=== PATIENT | female | born 1955 | race Caucasian/White ===

== ENCOUNTER 2025-01-21 17:59 | Emergency (ER) | payer MEDICARE, OTHER ==
[2025-01-21 18:18] VITALS: BP 206/96; RESP 20; TEMP 99.1; O2SAT 97
[2025-01-21] MEDS ORDERED: ACETAMINOPHEN 325 MG TAB PO ONE (18:30)
[2025-01-21] MEDS ORDERED: traMADol HCL 50 MG TAB PO ONE (18:30)
--- NOTE | 2025-01-21 18:32 | ED.PDOC ---
History of Present Illness HPI Comments 69-year-old female came to ER for high blood pressure. Patient does have history of hypertension thyroid disease. Has good compliance to her medications. She fell off her bed 2 days ago, and she suffered right ribcage fractures. Since then patient has been constant pain, despite taking ibuprofen 600mg. Patient had there blood pressure taken earlier, and noted to be elevated the 214/129 mm Hg. She denies any headaches, dizziness, or blurring of vision. Chief Complaint: High Blood Pressure Time Seen by MD: 18:29 Primary Care Provider: ANNA Reviewed Notes: Nurses Notes Allergies: Coded Allergies: Aspirin (Verified Allergy, Severe, 10/14/13) Information Source: Patient, Relative (Sibling) Mode of Arrival: Ambulatory Severity: Moderate Timing: Days Duration: Since onset Review of Systems REVIEW OF SYSTEMS: No fever, no chills, or fatigue HEENT: No sore throat, no earache, no congestion, no neck pain. Cardiac: (+) chest wall pain. No palpitations. Lungs: No shortness of breath, no cough. GI: No nausea, no vomiting, no diarrhea, no constipation, no abdominal pain : No dysuria, frequency, or urgency. No hematuria. Musculoskeletal: No joint pain , no joint swelling, no extremity edema. Skin: No rash, no itching. Neuro: No headache, no dizziness, no weakness Vital Signs Vital Signs Date Time Temp Pulse Resp B/P (MAP) Pulse Ox O2 Delivery O2 Flow Rate FiO2 01/21/25 18:56 69 01/21/25 18:18 99.1 20 206/96 (132) 97 99.1 Physical Exam General: Awake, alert and oriented. She is grasping her right costal area. Skin: Skin in warm, dry and intact. Appropriate color for ethnicity. Nailbeds pink with no cyanosis. HEENT: The head is normocephalic and atraumatic. Conjunctivae are clear without exudates or hemorrhage. Sclera is non-icteric. EOM are intact. No signs of nystagmus. Eyelids are normal in appearance without swelling or lesions. Oral mucosa is pink and moist Neck: The neck is supple with normal range of motion. No JVD. Cardiac: Heart rate and rhythm are normal. Positive systolic murmur. No gallop or rubs are auscultated. Respiratory: No signs of respiratory distress. Lung sounds are clear in all lobes bilaterally without rales, rhonchi, or wheezes. Abdominal: Abdomen is soft, non-tender without distention. Bowel sounds are present and normoactive in all four quadrants. Extremities: Upper and lower extremities are atraumatic in appearance without deformity or edema. Neurological: The patient is awake, alert and oriented to person, place, and time with normal speech. Speech is clear. There is no facial asymmetry. Normal gait Psychiatric: Appropriate mood and affect. Good judgement and insight. 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 Was a procedure done?: No EKG EKG : Pulse Rate (adult): 69 Cardiac Rhythm: NSR Hypertrophy: LAE Differential Dx Considerations may include: Hypertensive urgency, rib fracture, fall injury X-Ray, Labs, Meds, VS Vital Signs Date Time Temp Pulse Resp B/P (MAP) Pulse Ox O2 Delivery O2 Flow Rate FiO2 01/21/25 18:56 69 01/21/25 18:33 69 01/21/25 18:18 99.1 79 20 206/96 (132) 97 99.1 Lab Test 01/21/25 18:38 Range/Units White Blood Count 4.8 4.4-10.8 10^3/uL Red Blood Count 4.39 4.0-5.20 10^6/uL Hemoglobin 13.0 12.2-16.2 g/dL Hematocrit 38.3 36.0-46.0 % Mean Corpuscular Volume 87.4 80.0-100.0 fL Mean Corpuscular Hemoglobin 29.7 28.0-32.0 pg Mean Corpuscular Hemoglobin Concent 33.9 32.0-36.0 g/dL Red Cell Distribution Width 14.0 11.8-14.3 % Platelet Count 269 140-450 10^3/uL Mean Platelet Volume 8.4 6.9-10.8 fL Neutrophils (%) (Auto) 55.4 37.0-80.0 % Lymphocytes (%) (Auto) 31.4 10.0-50.0 % Monocytes (%) (Auto) 9.8 0.0-12.0 % Eosinophils (%) (Auto) 2.9 0.0-7.0 % Basophils (%) (Auto) 0.5 0.0-2.0 % Neutrophils # (Auto) 2.7 1.6-8.6 10 ^3/uL Lymphocytes # (Auto) 1.5 0.4-5.4 10 ^3/uL Monocytes # (Auto) 0.5 0-1.3 10 ^3/uL Eosinophils # (Auto) 0.1 0-0.8 10 ^3/uL Basophils # (Auto) 0 0-0.2 10 ^3/uL Nucleated Red Blood Cells 0.2 % Sodium Level 140 136-145 mmol/L Potassium Level 4.1 3.5-5.1 mmol/L Chloride Level 106 98-107 mmol/L Carbon Dioxide Level 25 20-31 mmol/L Anion Gap 9 5-15 Blood Urea Nitrogen 16 9-23 mg/dL Creatinine 0.64 0.550-1.02 mg/dL Glomerular Filtration Rate Calc 94 >90 mL/min BUN/Creatinine Ratio 25.0 H 10.0-20.0 Serum Glucose 97 74-106 mg/dL Calcium Level 9.6 8.7-10.4 mg/dL Troponin I High Sensitivity 6 </=34 ng/L XY CHEST TWO VIEWS ROUTINE CLINICAL HISTORY: htn, rib pain COMPARISON: None TECHNIQUE: Frontal and lateral view of the chest was obtained FINDINGS: Lines and Tubes: None Lungs: No focal consolidation. Pleura: No effusion. No pneumothorax. Cardiomediastinal contours: Unremarkable Bones: No acute osseous abnormality. IMPRESSION: 1. No acute cardiopulmonary disease. Time of 1ST Reevaluation: 18:26 Reevaluation 1ST: Unchanged Patient Education/Counseling: Other (Plan of care) Family Education/Counseling: Other (Plan of care) SEPSIS Sepsis Screen Date sepsis recognized/suspect: Jan 21, 2025 Time Sepsis recognized/suspect: 1819 Recent Procedure: No On Antibiotic Therapy: No Respiratory Rate >20: No Heart Rate >90: No Temp<36 C (96.8 F) or >38.3 C: No SBP <90 or MAP <65 mmHG: No New Acute Mental Status Change: No Is the patient on CPAP, BIPAP,: No Physician Orders Chest Two Views Routine (01/21/25 18:28) Electrocardigram (01/21/25 18:28) Vital Signs ONCE (01/21/25 19:25) Vital Signs Date Time Temp Pulse Resp B/P (MAP) Pulse Ox O2 Delivery O2 Flow Rate FiO2 01/21/25 18:56 69 01/21/25 18:33 69 01/21/25 18:18 99.1 79 20 206/96 (132) 97 99.1 Laboratory Tests Test 01/21/25 18:38 White Blood Count 4.8 10^3/uL (4.4-10.8) Departure 1 Departure Time of Disposition: 22:15 Impression: Primary Impression: Hypertension Additional Impression: Eloped from emergency department Disposition: LEFT AWOL/ELOPED Condition: Other Comments 69-year-old female who presented with hypertension, right-sided rib pain secondary to recent rib fracture. Patient was seen and examined in the triage area. Discussed plan of care with the patient and her brother. Patient and brother eloped from the emergency department prior to reviewing results and reassessing blood pressure. - I reviewed the following notes from the pt's past medical encounters: N/A The following tests were ordered, and results were reviewed by me: (See diagnostic results section) The following test were independently interpreted by me: EKG Additional information was gathered from interviewing the following independent historians: Patient's brother at bedside I reviewed and agreed with the following test results read by other providers: N/A I discussed treatments and results with patient Decision regarding hospitalization or escalation of hospital level of care: Risks and benefits of admission for further treatment of patient's condition was considered however due to patient's stable condition patient will be discharged to follow up closely or return to care for worsening of condition or inability to follow up. Critical Care Note Critical Care Time?: No Stability Stability form required: No Heart Score Heart Score: Heart Score Response (Comments) Value History N/A 0 EKG N/A 0 Age N/A 0 Risk Factors N/A 0 Troponin N/A 0 Total 0 I personally scribed for DIONNA JAUREGUI MD ([email or web address]) on 01/21/25 at 18:32. Electronically submitted by Toby Alfonso ([facility]). I personally scribed for DIONNA JAUREGUI MD ([email or web address]) on 01/21/25 at 18:54. Electronically submitted by Toby Alfonso ([email or web address]). I personally scribed for DIONNA JAUREGUI MD ([email or web address]) on 01/21/25 at 18:56. El ectronically submitted by Toby Alfonso ([email or web address]). I personally scribed for DIONNA JAUREGUI MD ([email or web address]) on 01/21/25 at 19:24. Electronically submitted by [facility] Alfonso ([facility] DIONNA JAUREGUI MD Jan 21, 2025 18:32
[2025-01-21 18:47] LABS: Basophils # (auto) 0 10 ^3/uL (0-0.2); Basophils % (auto) 0.5 % (0.0-2.0); Eosinophils # (auto) 0.1 10 ^3/uL (0-0.8); Eosinophils % (auto) 2.9 % (0.0-7.0); Hematocrit 38.3 % (36.0-46.0); Lymphocytes # (auto) 1.5 10 ^3/uL (0.4-5.4); Lymphocytes % (auto) 31.4 % (10.0-50.0); Mean Corpuscular Hemoglobin 29.7 pg (28.0-32.0); Mean Corpuscular Hgb Conc. 33.9 g/dL (32.0-36.0); Mean Corpuscular Volume 87.4 fL (80.0-100.0); Monocytes # (auto) 0.5 10 ^3/uL (0-1.3); Monocytes % (auto) 9.8 % (0.0-12.0); Neutrophils # (auto) 2.7 10 ^3/uL (1.6-8.6); Neutrophils % (auto) 55.4 % (37.0-80.0); Nucleated Red Blood Cells % 0.2 %; Platelet Count (auto) 269 10^3/uL (140-450); Red Blood Cells 4.39 10^6/uL (4.0-5.20); White Blood Cell 4.8 10^3/uL (4.4-10.8)
[2025-01-21 18:55] LABS: Chloride 106 mmol/L (98-107); Potassium 4.1 mmol/L (3.5-5.1); Sodium 140 mmol/L (136-145)
[2025-01-21 18:56] VITALS: PULSE 69
[2025-01-21 18:56] LABS: Anion Gap 9 (5-15); Calcium 9.6 mg/dL (8.7-10.4); Carbon Dioxide 25 mmol/L (20-31)
[2025-01-21 19:01] LABS: Blood Urea Nitrogen 16 mg/dL (9-23); Glucose 97 mg/dL (74-106)
--- NOTE | 2025-01-21 19:21 | DVH ---
XY CHEST TWO VIEWS ROUTINE CLINICAL HISTORY: htn, rib pain COMPARISON: None TECHNIQUE: Frontal and lateral view of the chest was obtained FINDINGS: Lines and Tubes: None Lungs: No focal consolidation. Pleura: No effusion. No pneumothorax. Cardiomediastinal contours: Unremarkable Bones: No acute osseous abnormality. IMPRESSION: 1. No acute cardiopulmonary disease. HS:Y
--- NOTE | 2025-01-23 10:25 | ECG ---
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
== END 2025-01-21 22:14 | disposition left against medical advice (07) ==
LOC: ER 17:59
DX: I10 Essential (primary) hypertension (principal); Z88.6 Allergy status to analgesic agent
CPT/HCPCS: 36415; 71046; 80048; 84484; 85025; 93005

== ENCOUNTER 2025-05-23 15:30 | Emergency (ER) | payer MEDICARE, OTHER ==
[~2025-05-23] VITALS: Ht 162.6 cm; Wt 64.4 kg
[2025-05-23 15:31] VITALS: BP 151/84; RESP 18; TEMP 97.8; O2SAT 97
--- NOTE | 2025-05-23 15:51 | ECG ---
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
[2025-05-23 16:43] LABS: Hematocrit 37.9 % (36.0-46.0); Hemoglobin 12.7 g/dL (12.2-16.2); Mean Corpuscular Hemoglobin 29.6 pg (28.0-32.0); Mean Corpuscular Volume 88.6 fL (80.0-100.0); Nucleated Red Blood Cells % 0.1 %
[2025-05-23 16:58] LABS: Alanine Aminotransferase 23 U/L (7-40); Albumin 4.4 g/dL (3.2-4.8); Anion Gap 8 (5-15); BUN/Creatinine Ratio 28.6 (10.0-20.0); Bilirubin, Total 0.7 mg/dL (0.2-1.0); Blood Urea Nitrogen 20 mg/dL (9-23); Calcium 9.1 mg/dL (8.7-10.4); Carbon Dioxide 25 mmol/L (20-31); Chloride 104 mmol/L (98-107); Glucose 102 mg/dL (74-106); Lipase 33 U/L (12-53); Potassium 3.6 mmol/L (3.5-5.1); Sodium 137 mmol/L (136-145); Total Protein 7.1 g/dL (5.7-8.2)
[2025-05-23 17:00] LABS: Alkaline Phosphatase 136 U/L (46-116)
--- NOTE | 2025-05-23 17:32 | DVH ---
Indication: Abdominal pain Technique: CT axial images of the abdomen and pelvis are obtained without contrast. Coronal and sagit danyell reformats were obtained. Radiation Dose Information: CTDI volume is 11 mGy. Dose-length product is 556 mGy*cm Comparison: None FINDINGS: There is limited interpretation of the abdomen and pelvis without administration of intravenous contr ast. The lung bases demonstrate innumerable bilateral pulmonary nodules including right lower lobe nodules measuring 1.7 cm, 1.5 cm, left lower lobe nodules measuring 11 mm, 10 mm. Overall,> 50 nodules bila terally. Adrenal glands, spleen, pancreas, liver unremarkable in shape. No CT evidence for cholelithiasis. Kidneys demonstrate no hydronephrosis . 4 mm nonobstructing right renal calculus. Stomach is partially distended. Small bowel loops normal in caliber. Large volume stool throughout the colon. Abdominal aortic atherosclerotic disease. Bladder contracted. No free pelvic fluid. No inguinal lymph adenopathy. [id number] bilateral sacroiliac degenerative joint disease. Old posterior right rib fractures. Moderate thoracolumbar degenerative disc disease. 2.1 cm L1 hemangioma. IMPRESSION: Limited evaluation without contrast. Innumerable bilateral pulmonary nodules, greater than 15 quantity with the largest being a right lowe r lobe nodule measuring 1.7 cm. These are highly concerning for malignancy /metastatic disease. [facility]on[facility]. Large volume stool throughout the colon. 4 mm nonobstructing right renal calculus. Atherosclerotic disease. Other findings as described.
[2025-05-23] MEDS ORDERED: PANTOPRAZOLE 40 MG/10 ML VIAL INJ IV ONE (17:45)
[2025-05-23] MEDS ORDERED: KETOROLAC TROMETH 30 MG/ML 1ML VIAL IV ONE (17:45)
[2025-05-23] MEDS: PANTOPRAZOLE 40 MG TAB PO ONE (18:04)
[2025-05-23] MEDS: ONDANSETRON ODT 4 MG TAB PO ONE (18:04)
[2025-05-23] MEDS: MAALOX PLUS or MAALOX 30 ML PO ONE (18:04)
[2025-05-23 18:18] LABS: Urine Protein, UAD TRACE (Negative)
[2025-05-23 20:33] VITALS: PULSE 77
--- NOTE | 2025-05-23 20:33 | ED.PDOC ---
History of Present Illness HPI Comments Ms. Tong is 69 year old female with PMHx of hypertension and an unspecified thyroid cancer s/p thyroidectomy, who presents today with chief complaint of general weakness. She refers sudden onset of epigastric pain described as intermittent, sharp, non-radiating, 10/10 intensity, associated with two episodes of vomit, without aggravating factors, slightly relieved by consuming a glass of apple cider vinegar. Additionally states she took her blood pressure at this time with a reading of 200/108 mmHg. She denies nausea, diarrhea, chills, diaphoresis, fever, headache, chest pain, contact with potentially food, or sick contacts. She reports she has continued to have intermittent symptoms and on seeing her BP today was 204/100 mmHg, she came to the emergency room for evaluation. Attestation note: Dr. White: I was the supervising attending for this ED encounter. Please see the resident's notes. I was available for questions and consultations. Differential diagnosis: As far as abdominal pain: DDX include Diverticulitis, colitis, gastroenteritis, acute abdomen, SBO, enteritis, constipation, volvulus, appendicitis, Gallbladder disease, choledocolithiasis, ascending cholangitis, pancreatitis, intraAbdominal mass/neoplasm, hepatitis, UTI, pylonephritis, kidney stone, aneurysm, dissection, Inflammatory bowel disease, gastroparesis, ischemic bowel,,,,,, As far as generalized weakness: Includes but not limited to thyroid disease, encephalopathy, electrolyte abnormality, sepsis, infection, intracranial pathology, drug adverse effects, arrhythmia, kidney insufficiency, ACS, CVA, malignancy, anemia MDM: MDM: patient presented with the above HPI.---generalized weakness/epigastric pain---workup was initiated. patient was found with the above mentioned diagnosis. the following medications were ordered: please refer to order lists of meds and tests obtained by myself Dr. White. Or the resident Patient ED course and VS have been stabilized. However patient eloped. All the reports of any imaging studies that were ordered by myself were reviewed by myself. 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 BLASTING MACHINE OPERATOR History Family History Family History: Family hx of stroke Social History Smoker: Non-Smoker Alcohol: Denies ETOH Use Drugs: Denies Drug Use Lives In: Home Constitutional: reports: others; denies: chills, diaphoresis, fatigue, fever, malaise, sweats, weakness EENTM: denies: mouth pain, mouth swelling, nasal discharge, nose pain, photophobia, tearing, throat pain, throat swelling Respiratory: reports: stridor; denies: cough, shortness of breath, wheezing Cardiovascular: reports: others (Elevated blood pressure); denies: chest pain, diaphoresis, Dyspnea on exertion, edema, lightheadedness, palpitations, syncope Gastrointestinal: reports: abdominal pain, nausea, vomiting Genitourinary: denies: dysuria, flank pain, frequency, hematuria, incontinence, pain, urgency Neurological: denies: dizziness, fainting, headache, tremors, weakness Musculoskeletal: denies: back pain, joint pain, muscle pain, muscle stiffness Integumetry: denies: bruises, dryness, rash Physical Exam General Appearance: Normal HEENT: Normal ENT Inspection, PERRL/EOMI, Pharynx Normal Neck: Full Range of Motion, Non-Tender, Normal Inspection Respiratory: Chest Non-Tender, Lungs Clear, No Accessory Muscle Use, No Respiratory Distress, Normal Breath Sounds Cardiovascular: No Edema, No Murmur, No Gallop, Normal Peripheral Pulses, Regular Rate/Rhythm Breast Exam: Deferred Gastrointestinal: No Organomegaly, Non Tender, Normal Bowel Sounds Genitalia: Deferred Pelvic: Deferred Rectal: Deferred Extremities: Normal capillary refill, Normal inspection, Normal range of motion, No pedal edema Neurologic: Normal Affect, Normal Mood Cerebellar Function: NOT DONE Reflexes: NOT DONE Skin: Normal Color Lymphatic: NOT DONE Was a procedure done? Was a procedure done?: No EKG EKG : Pulse Rate (adult): 77 [place]: Normal Cardiac Rhythm: NSR Block: IVCD (Right) Hypertrophy: LAE, RVH Differential Dx Considerations may include: Acute gastritis, pancreatitis, peptic ulcer, acute gastroenteritis, colitis, myocardial infarction, ACS X-Ray, Labs, Meds, VS Vital Signs Date Time Temp Pulse Resp B/P (MAP) Pulse Ox O2 Delivery O2 Flow Rate FiO2 05/23/25 20:33 77 05/23/25 15:45 77 05/23/25 15:31 97.8 81 18 151/84 97 97.8 Lab Test 05/23/25 16:40 05/23/25 16:29 Range/Units Urine Color Yellow Yellow Urine Clarity Clear Clear Urine pH 6.0 5.0-9.0 Urine Specific [place] 1.031 1.001-1.035 Urine Protein Trace H Negative Urine Ketones Negative Negative Urine Blood Negative Negative /uL Urine Nitrite Negative Negative Urine Bilirubin Negative Negative Urine Urobilinogen Normal Negative mg/dL Urine Leukocyte Esterase Negative Negative /uL Urine RBC 1 0 - 4 /hpf Urine Microscopic WBC 1 0-5 /HPF Urine Squamous Epithelial Cells Few <5 /hpf Urine Bacteria None seen None Seen /hpf Urine Mucus Few None Seen Urine Glucose Normal Normal mg/dL White Blood Count 6.4 4.4-10.8 10^3/uL Red Blood Count 4.28 4.0-5.20 10^6/uL Hemoglobin 12.7 12.2-16.2 g/dL Hematocrit 37.9 36.0-46.0 % Mean Corpuscular Volume 88.6 80.0-100.0 fL Mean Corpuscular Hemoglobin 29.6 28.0-32.0 pg Mean Corpuscular Hemoglobin Concent 33.4 32.0-36.0 g/dL Red Cell Distribution Width 14.5 H 11.8-14.3 % Platelet Count 252 140-450 10^3/uL Mean Platelet Volume 8.4 6.9-10.8 fL Neutrophils (%) (Auto) 79.9 37.0-80.0 % Lymphocytes (%) (Auto) 13.0 10.0-50.0 % Monocytes (%) (Auto) 6.3 0.0-12.0 % Eosinophils (%) (Auto) 0.2 0.0-7.0 % Basophils (%) (Auto) 0.6 0.0-2.0 % Neutrophils # (Auto) 5.1 1.6-8.6 10 ^3/uL Lymphocytes # (Auto) 0.8 0.4-5.4 10 ^3/uL Monocytes # (Auto) 0.4 0-1.3 10 ^3/uL Eosinophils # (Auto) 0 0-0.8 10 ^3/uL Basophils # (Auto) 0 0-0.2 10 ^3/uL Nucleated Red Blood Cells 0.1 % Sodium Level 137 136-145 mmol/L Potassium Level 3.6 3.5-5.1 mmol/L Chloride Level 104 98-107 mmol/L Carbon Dioxide Level 25 20-31 mmol/L Anion Gap 8 5-15 Blood Urea Nitrogen 20 9-23 mg/dL Creatinine 0.70 0.550-1.02 mg/dL Glomerular Filtration Rate Calc 92 >90 mL/min BUN/Creatinine Ratio 28.6 H 10.0-20.0 Serum Glucose 102 74-106 mg/dL Calcium Level 9.1 8.7-10.4 mg/dL Total Bilirubin 0.7 0.2-1.0 mg/dL Aspartate Amino Transferase (AST) 19 13-40 U/L Alanine Aminotransferase (ALT) 23 7-40 U/L Alkaline Phosphatase 136 H 46-116 U/L Troponin I High Sensitivity 6 </=34 ng/L Total Protein 7.1 5.7-8.2 g/dL Albumin 4.4 3.2-4.8 g/dL Lipase 33 12-53 U/L Time of 1ST Reevaluation: 17:45 Reevaluation 1ST: Unchanged Patient Education/Counseling: Diagnosis, Treatment Family Education/Counseling: No Family Present Comments Patient presented today for epigastric pain, nausea and elevated blood pressure On evaluation in the ED, the patient was found well, vitals were stable with blood pressure of 151/82 mmHg. Physical exam show without positive findings CBC within normal range, CMP significant for mildly elevated ALP, Lipase is 33, troponins are negative, UA without significant findings EKG shows sinus rhythm, normal access, LAE, RSR in V1 or V2, right VCD or RV, left ventricular hypertrophy Abdominal/pelvic CT without contrast shows innumerable bilateral pulmonary nodules, greater than 15 quantity with the largest being a right lower lobe nodule measuring 1.7 cm highly concerning for malignancy/metastatic disease, large volume stool throughout the colon, 4 mm nonobstructing right renal calculus, and arthrosclerotic disease The patient had been given oral Protonix, oral Zofran, and Maalox for abdominal discomfort The patient was called on multiple occasions to discuss the results of the imaging, with no reply The patient eloped before for results of imaging and workup could be discussed SEPSIS Sepsis Screen Date sepsis recognized/suspect: May 23, 2025 Time Sepsis recognized/suspect: 1531 Recent Procedure: No On Antibiotic Therapy: No Respiratory Rate >20: No Heart Rate >90: No Temp<36 C (96.8 F) or >38.3 C: No SBP <90 or MAP <65 mmHG: No New Acute Mental Status Change: No Is the patient on CPAP, BIPAP,: No Physician Orders Ct Ab Pel Wo Con-No Oral Or Iv (05/23/25 16:15) Vital Signs Date Time Temp Pulse Resp B/P (MAP) Pulse Ox O2 Delivery O2 Flow Rate FiO2 05/23/25 20:33 77 05/23/25 15:45 77 05/23/25 15:31 97.8 81 18 151/84 97 97.8 Laboratory Tests Test 05/23/25 16:29 White Blood Count 6.4 10^3/uL (4.4-10.8) Departure 1 Departure Time of Disposition: 20:24 (The patient presented with complaint of epigastric abdominal pain and nausea and vomiting concerning for pancreatitis, acute, ga stroenteritis, peptic ulcers, colitis, myocardial infarction, ACS.1. I ordered and reviewed at least 3 labs including CBC, CMP, , troponins, all of which normal range. I ordered and reviewed the following: EKG which showed sinus rhythm and Abdominal/pelvic CT which showed a 4 mm non obstructing calculus and large amounts of stool. Due to data, the patient is unlikely to present m yocardial infarction, ACS, pancreatitis. The patient was called for reevaluation and to discuss imaging and did not answer. She was called 3 more times and did not answer. The patient eloped. ) Impression: Primary Impression: Intractable abdominal pain Additional Impressions: Hypertension Pulmonary nodule Disposition: LEFT AWOL/ELOPED Condition: Other (Undetermined) Critical Care Note Critical Care Time?: No Stability Stability form required: No Heart Score Heart Score: Heart Score Response (Comments) Value History N/A 0 EKG N/A 0 Age N/A 0 Risk Factors N/A 0 Troponin N/A 0 Total 0 CHIOMA PEACOCK RESIDENT May 23, 2025 20:33 ALBERTO WHITE DO May 25, 2025 19:10
== END 2025-05-23 19:38 | disposition left against medical advice (07) ==
LOC: ER 15:34
DX: I10 Essential (primary) hypertension (principal); R91.1 Solitary pulmonary nodule; R10.13 Epigastric pain; Z85.850 Personal history of malignant neoplasm of thyroid; Z88.6 Allergy status to analgesic agent; Z90.89 Acquired absence of other organs
CPT/HCPCS: 36415; 74176; 80053; 81001; 83690; 84484; 85025; 93005; 99284; Q0162